=== PATIENT | female | born 1950 ===

== ENCOUNTER → 2016-11-21 | Outpatient (CLI) | payer MEDICARE, OTHER ==
[~2016-11-21] MED LIST: CALCIUM CARBON600 MG PO; DIOVAN160 MG PO; HUMALOG100 UNIT/1 SUB-Q; LIPITOR20 M1 PO; PLAQUENIL200 MG PO; THERA-VITE W/ B1 TAB PO; VITAMIN D1000 UNI1 PO
== END | disposition disaster alternative care site (69) ==
LOC: GBCOE 12:08
DX: Z12.31 Encounter for screening mammogram for malignant neoplasm of breast (principal)
CPT/HCPCS: G0202